=== PATIENT | female | born 1970 | race Caucasian/White ===

== ENCOUNTER 2016-05-21 08:26 | Day surgery (SDC) | payer OTHER ==
[~2016-05-21] VITALS: Ht 157.5 cm; Wt 81.0 kg
[~2016-05-21 08:26] MED LIST: ANASTROZOLE1 MG PO; ARYMO ER15 MG PO; B COMPLETE1 EACH PO; CALCIUM 500-VI1 EACH PO; CARDIZEM CD,CA180 MG PO; CLARITIN10 M3 PO; CLONAZEPAM1 MG PO; CYCLOBENZAPRINE10 MG PO; DICYCLOMINE HCL10 MG PO; GABAPENTIN300 MG PO; HYDROCHLOROTHIA25 MG PO; IMDUR120 MG PO; LIDOPRO OINTME121 GM TP; LOSARTAN POTAS100 MG PO; NAPROXEN500 MG PO; PERCOCET 10/1 TABLET PO; PROTONIX40 MG PO; RANITIDINE HCL150 MG PO; REXULTI2 MG PO; TOPIRAMATE100 MG PO; TRAMADOL HCL E100 M1 PO; VALIUM10 MG PO; VITAMIN D400 UNIT PO
== END 2016-05-21 17:30 | disposition home or self-care (01) ==
LOC: CATH 08:26
DX: R07.9 Chest pain, unspecified (principal); R06.09 Other forms of dyspnea; I10 Essential (primary) hypertension; Z85.3 Personal history of malignant neoplasm of breast; Z92.21 Personal history of antineoplastic chemotherapy; Z79.899 Other long term (current) drug therapy; Z85.43 Personal history of malignant neoplasm of ovary; G47.9 Sleep disorder, unspecified; Z82.49 Family history of ischemic heart disease and other diseases of the circulatory system; Z80.9 Family history of malignant neoplasm, unspecified; Z88.0 Allergy status to penicillin; Z90.13 Acquired absence of bilateral breasts and nipples; Z90.710 Acquired absence of both cervix and uterus; Z90.722 Acquired absence of ovaries, bilateral
CPT/HCPCS: 93005; C1750; C1760; C1769; C1887; C1894; J1644; J2250; J3010

== ENCOUNTER 2016-07-26 21:45 | Emergency (ER) | payer OTHER ==
[~2016-07-26] VITALS: Ht 157.5 cm; Wt 79.5 kg
[2016-07-26 21:48] VITALS: BP 124/91
[2016-07-26 22:13] LABS: HEMATOCRIT 37.3 % (36.0-46.0); MCH 29.9 PG (29.0-34.0); MCHC 33.5 G/DL (30.0-36.0); MCV 89.2 FL (83-99); MEAN PLAT.VOLUME 10.5 uM^3 (9.5-12.4); PLATELET COUNT 257 K/uL (156-360); RBC DIS.WIDTH-CV 12.5 % (11.8-14.6); RBC DIS.WIDTH-SD 40.4 % (39-53); RED BLOOD COUNT 4.18 M/uL (3.80-5.20); WHITE BLOOD COUNT 6.4 K/uL (4.1-10.2)
[2016-07-26 22:29] LABS: CHLORIDE 106 mEq/L (99-109); POTASSIUM 3.5 mEq/L (3.7-5.4); SODIUM 142 mEq/L (136-147)
[2016-07-26 22:31] LABS: GLUCOSE 91 mg/dL (70-99)
[2016-07-26 22:33] LABS: ANION GAP 11 MEQ/L (2-14)
[2016-07-26 22:35] LABS: GFR ESTIMATE (CALCULATED) > 59 mL/min/; TROP-I INTERPRETATION NEGATIVE; TROPONIN-I < 0.01 ng/mL (0.0-0.30)
[2016-07-26 22:36] LABS: UREA NITROGEN (BUN) 7 mg/dL (9-23)
== END 2016-07-26 22:35 | disposition left against medical advice (07) ==
LOC: EME 21:45
DX: R07.89 Other chest pain (principal); R11.0 Nausea; R06.02 Shortness of breath; Z53.21 Procedure and treatment not carried out due to patient leaving prior to being seen by health care provider
CPT/HCPCS: 80048; 84484; 85027; 93005